=== PATIENT | female | born 1965 | race Caucasian/White ===

== ENCOUNTER 2017-02-21 16:58 | Emergency (ER) | payer SELFPAY ==
[~2017-02-21] VITALS: Ht 162.6 cm; Wt 68.2 kg
[2017-02-21 17:00] VITALS: BP 165/93
[2017-02-21 17:42] LABS: BLOOD UREA NITROGEN 12 mg/dL (7-18)
[2017-02-21 18:16] LABS: IS PT STATUS REG ER OR PRE ER? YES
== END 2017-02-21 19:07 | disposition left against medical advice (07) ==
LOC: ED 19:00
DX: R00.2 Palpitations (principal); F41.1 Generalized anxiety disorder; F22 Delusional disorders; F23 Brief psychotic disorder; F19.10 Other psychoactive substance abuse, uncomplicated
CPT/HCPCS: 36415; 71010; 80048; 82040; 84484; 85025; 93005

== ENCOUNTER 2019-09-27 12:28 | Emergency (ER) | payer MEDICARE ==
[~2019-09-27] VITALS: Ht 162.6 cm; Wt 67.0 kg
[2019-09-27 12:31] VITALS: BP 134/76
[2019-09-27 13:39] LABS: BASOPHILS # (AUTO) 0.11 x10^3/uL (0-0.1); BASOPHILS % (AUTO) 2 % (0-1); EOSINOPHILS # (AUTO) 0.12 x10^3/uL (0-0.4); EOSINOPHILS % (AUTO) 2 % (1-7); LYMPHOCYTES # (AUTO) 1.62 x10^3/uL (1-3.4); LYMPHOCYTES % (AUTO) 25 % (22-44); MD NO; MEAN CORPUSCULAR HEMOGLOBIN 33.2 pg (27.0-34.8); MEAN CORPUSCULAR HGB CONC 34.4 g/dL (32.4-35.8); MEAN CORPUSCULAR VOLUME 96.5 fL (80-100); MEAN PLATELET VOLUME 7.8 fL (7.4-10.4); MONOCYTES # (AUTO) 0.47 x10^3/uL (0.2-0.8); MONOCYTES % (AUTO) 7 % (2-9); NEUTROPHILS # (AUTO) 4.18 x10^3/uL (1.8-6.8); NEUTROPHILS % (AUTO) 64 % (42-75); PLATELET COUNT 330 x10^3/uL (130-400); RED BLOOD COUNT 4.59 x10^6/uL (3.82-5.3)
[2019-09-27 13:45] LABS: CALCIUM 9.6 mg/dL (8.5-10.1); CREATININE 0.77 mg/dL (0.55-1.02)
[2019-09-27 13:54] LABS: ANION GAP 5 mmol/L (5-15); CHLORIDE 104 mmol/L (98-107)
--- NOTE | 2019-09-27 14:48 | NUR ---
pt given dc instructions and script, educated regarding ent f/u. pt a&o, resps even and unlabored, nadn. pt amb to dc desk with steady gait, all questions answered.
== END 2019-09-27 14:49 | disposition home or self-care (01) ==
LOC: ED 13:26
DX: H93.12 Tinnitus, left ear (principal); H92.02 Otalgia, left ear
CPT/HCPCS: 36415; 80048; 82040; 85025; 99283

== ENCOUNTER 2019-10-15 00:09 | Emergency (ER) | payer MEDICARE ==
[~2019-10-15] VITALS: Ht 162.6 cm; Wt 67.1 kg
[2019-10-15 01:48] VITALS: BP 139/74
[2019-10-15 02:13] LABS: BASOPHILS # (AUTO) 0.02 x10^3/uL (0-0.1); BASOPHILS % (AUTO) 0 % (0-1); EOSINOPHILS # (AUTO) 0.25 x10^3/uL (0-0.4); EOSINOPHILS % (AUTO) 3 % (1-7); LYMPHOCYTES # (AUTO) 1.64 x10^3/uL (1-3.4); LYMPHOCYTES % (AUTO) 21 % (22-44); MD NO; MEAN CORPUSCULAR HEMOGLOBIN 32.9 pg (27.0-34.8); MEAN CORPUSCULAR HGB CONC 34.1 g/dL (32.4-35.8); MEAN CORPUSCULAR VOLUME 96.6 fL (80-100); MEAN PLATELET VOLUME 7.8 fL (7.4-10.4); MONOCYTES # (AUTO) 0.73 x10^3/uL (0.2-0.8); MONOCYTES % (AUTO) 9 % (2-9); NEUTROPHILS # (AUTO) 5.37 x10^3/uL (1.8-6.8); NEUTROPHILS % (AUTO) 67 % (42-75); PLATELET COUNT 338 x10^3/uL (130-400); RED BLOOD COUNT 4.35 x10^6/uL (3.82-5.3)
[2019-10-15 02:24] LABS: ALANINE AMINOTRANSFERASE 34 U/L (12-78); ALBUMIN 3.8 g/dL (3.4-5.0); ANION GAP 6 mmol/L (5-15); CALCIUM 9.3 mg/dL (8.5-10.1); CHLORIDE 105 mmol/L (98-107); CREATININE 0.88 mg/dL (0.55-1.02)
[2019-10-15 02:27] LABS: ALKALINE PHOSPHATASE 56 U/L (45-117); BILIRUBIN,TOTAL 0.6 mg/dL (0.2-1.0)
[2019-10-15 02:35] LABS: SALICYLATE LEVEL < 1.7 mg/dL (2.8-20.0)
[2019-10-15 03:14] LABS: AMPHETAMINE SCREEN, URINE Negative (Negative); BARBITURATE SCREEN, URINE Negative (Negative); BENZODIAZEPINE SCREEN, URINE Negative (Negative); CANNABINOID SCREEN, URINE Negative (Negative); COCAINE SCREEN, URINE Negative (Negative); METHADONE SCREEN, URINE Negative (Negative); OPIATE SCREEN, URINE Negative (Negative)
== END 2019-10-15 03:16 | disposition home or self-care (01) ==
LOC: ED 01:22
DX: H93.13 Tinnitus, bilateral (principal); F29 Unspecified psychosis not due to a substance or known physiological condition; F22 Delusional disorders
CPT/HCPCS: 36415; 80053; 80307; 85025; 99283

== ENCOUNTER 2019-11-27 13:58 | Emergency (ER) | payer MEDICARE, MEDICAID ==
[~2019-11-27] VITALS: Ht 162.6 cm; Wt 58.0 kg
[2019-11-27] MEDS ORDERED: ALPR0.5T7 PO (14:20)
--- NOTE | 2019-11-27 14:21 | NUR ---
PT BIBA TO ED FROM [place]. +SI. ON LEGAL HOLD. "I WANT TO BLOW MY BRAINS OUT". EMS BROUGHT LEGAL AT 1421. AXoX4. ANXIOUS. FLIGHT OF IDEAS. "MACHINES DON'T WORK AROUNDME. MY EXES ARE HITTING ME WITH EMPS." TAKEN OFF SEROQUEL (PER PT) D/T ALLERGIC RX 2 WKS AGO AND HASN'T HAD MEDS SINCE, SO WENT TO [place] TODAY. STS HAS HX SUICIDE ATTEMPTS (OD). ASHANTI IN ROOM. LABS/EKG. PT COOPERATIVE. UA SENT.
[2019-11-27 14:26] LABS: BASOPHILS # (AUTO) 0.02 x10^3/uL (0-0.1); BASOPHILS % (AUTO) 0 % (0-1); EOSINOPHILS # (AUTO) 0.09 x10^3/uL (0-0.4); EOSINOPHILS % (AUTO) 1 % (1-7); LYMPHOCYTES # (AUTO) 1.77 x10^3/uL (1-3.4); LYMPHOCYTES % (AUTO) 20 % (22-44); MD NO; MEAN CORPUSCULAR HEMOGLOBIN 32.8 pg (27.0-34.8); MEAN CORPUSCULAR HGB CONC 34.5 g/dL (32.4-35.8); MEAN CORPUSCULAR VOLUME 94.9 fL (80-100); MEAN PLATELET VOLUME 8.4 fL (7.4-10.4); MONOCYTES # (AUTO) 0.75 x10^3/uL (0.2-0.8); MONOCYTES % (AUTO) 8 % (2-9); NEUTROPHILS # (AUTO) 6.21 x10^3/uL (1.8-6.8); NEUTROPHILS % (AUTO) 70 % (42-75); PLATELET COUNT 332 x10^3/uL (130-400); RED BLOOD COUNT 4.51 x10^6/uL (3.82-5.3); RED CELL DISTRIBUTION WIDTH 12.5 % (9.6-15.2)
--- NOTE | 2019-11-27 14:27 | NUR ---
TASK RN: THIS RN PRESENT DURING EKG PROCEDURE. PT TOLERATED WITH NO COMPLICATIONS.
[2019-11-27] MEDS ORDERED: LORazepam 1MG TABLET ONE (14:29)
[2019-11-27] MEDS ORDERED: LORazepam 1MG TABLET PO ONE (14:30)
--- NOTE | 2019-11-27 14:33 | NUR ---
BELONGINGS (2 BAGS) IN PSYCH LOCKER. SITTER IN PLACE FOR SAFETY. LEGAL HOLD PAPERS GIVEN TO DR BURRELL. REPORT TO CELESTINO JOSEPH.
[2019-11-27 14:35] LABS: ALBUMIN 4.2 g/dL (3.4-5.0); ANION GAP 6 mmol/L (5-15); CALCIUM 9.4 mg/dL (8.5-10.1); CHLORIDE 105 mmol/L (98-107); CREATININE 0.75 mg/dL (0.55-1.02)
[2019-11-27 14:36] LABS: SALICYLATE LEVEL < 1.7 mg/dL (2.8-20.0)
[2019-11-27 15:20] LABS: AMPHETAMINE SCREEN, URINE Negative (Negative); BARBITURATE SCREEN, URINE Negative (Negative); BENZODIAZEPINE SCREEN, URINE Negative (Negative); CANNABINOID SCREEN, URINE Negative (Negative); COCAINE SCREEN, URINE Negative (Negative); METHADONE SCREEN, URINE Negative (Negative); OPIATE SCREEN, URINE Negative (Negative)
--- NOTE | 2019-11-27 15:59 | NUR ---
ALDO BARREL RAISER HELPER AT BEDSIDEFOR EVALUATION
[2019-11-27] MEDS ORDERED: QUETIAPINE 25MG TABLET PO PRN (16:00)
[2019-11-27] MEDS ORDERED: QUET300T5 PO (16:00)
[2019-11-27] MEDS ORDERED: QUETIAPINE 25MG TABLET ONE (16:11)
--- NOTE | 2019-11-27 16:54 | NUR ---
MEAL PROVIDED. SAFETY PRECAUTIONS IN PLACE.
--- NOTE | 2019-11-27 18:15 | NUR ---
REPORT TO ELI DHILLON RN
--- NOTE | 2019-11-27 18:39 | NUR ---
PT RESTING IN BED, SAFETY PRECAUTIONS IN PLACE. SNACK PROVIDED.
--- NOTE | 2019-11-27 18:44 | NUR ---
REPORT GIVEN TO JESSIE JOSEPH
--- NOTE | 2019-11-27 18:49 | NUR ---
REPORT RECEIVED FROM OPAL TIRADO. REPORT ALREADY CALLED TO 3E, AWAITING BED. PT RESTING ON GURNEY, UPDATED ON POC. SITTER IN HALLWAY, ROOM SECURED.
[2019-11-27] MEDS ORDERED: QUETIAPINE 100MG TABLET PO SCH ×2 (21:00→22:00)
[2019-11-27 21:02] VITALS: BP 152/88
[2019-11-27] MEDS ORDERED: ZOLPIDEM 5MG TABLET PO PRN (22:00)
[2019-11-28] MEDS ORDERED: LAMO200T3 PO (01:22)
[2019-11-28] MEDS ORDERED: LAMOTRIGINE 100 MG TABLET PO SCH (09:00)
== END 2019-11-27 21:01 | disposition home or self-care (01) ==
LOC: ED 14:32 → EDIP 19:34 → 3E 19:34 → UNDOADMIN 19:34 → ED 21:01
DX: F22 Delusional disorders (principal); R45.851 Suicidal ideations; F41.1 Generalized anxiety disorder; Z91.14 Patient's other noncompliance with medication regimen; I51.7 Cardiomegaly
CPT/HCPCS: 36415; 80048; 80307; 82040; 85025; 93005; 99284

== ENCOUNTER 2019-11-27 18:49 | Inpatient (IN) | payer MEDICARE, MEDICAID ==
[~2019-11-27] VITALS: Ht 162.6 cm; Wt 70.9 kg
[~2019-11-27 18:49] MED LIST: ALPR0.5T7 PO; QUET300T5 PO
[2019-11-27] MEDS ORDERED: BISACODYL 10 MG SUPP PR PRN (20:00)
[2019-11-27] MEDS ORDERED: DOCUSATE 100 MG CAPSULE PO PRN (20:00)
[2019-11-27] MEDS ORDERED: ONDANSETRON ODT 4 MG PO PRN (20:00)
[2019-11-27] MEDS ORDERED: POLYETHYLENE GLYCOL 17 GM PACKET PO PRN (20:00)
[2019-11-27 20:22] LABS: ALANINE AMINOTRANSFERASE 38 U/L (12-78); ALBUMIN 4.1 g/dL (3.4-5.0); BILIRUBIN, DIRECT 0.1 mg/dL (0.1-0.2); CHOLESTEROL, TOTAL 200 mg/dL (140-239)
[2019-11-27 20:27] LABS: ALKALINE PHOSPHATASE 67 U/L (45-117); BILIRUBIN,INDIRECT 0.3 mg/dL (0.0-2.0); BILIRUBIN,TOTAL 0.4 mg/dL (0.2-1.0); CHOL/HDL RATIO 3.6; FREE T4 (FREE THYROXINE) 1.33 ng/dL (0.76-1.46); HDL CHOL % 28 % (28-40); HDL CHOLESTEROL (DIRECT) 55 mg/dL (40-60); TOTAL PROTEIN 8.1 g/dL (6.4-8.2); TRIGLYCERIDES 500 mg/dL (50-200)
[2019-11-27 20:29] LABS: CULTURE INDICATED? YES; MICROSCOPIC INDICATED
[2019-11-27 21:05] VITALS: BP 152/88
[2019-11-27 22:00] VITALS: BP 152/88
[2019-11-27] MEDS ORDERED: QUETIAPINE 100MG TABLET PO SCH (22:30)
[2019-11-27] MEDS ORDERED: PLEASE ENTER HEIGHT AND WEIGHT MC SCH (22:30)
[2019-11-27] MEDS: ZOLPIDEM 5MG TABLET PO PRN (22:34)
[2019-11-28] MEDS ORDERED: LAMO200T3 PO (01:22)
[2019-11-28 07:38] VITALS: BP 123/87
[2019-11-28] MEDS: MELOXICAM 15 MG TABLET PO SCH (08:32)
[2019-11-28] MEDS: LAMOTRIGINE 25 MG TABLET PO SCH (08:33)
[2019-11-28] MEDS: LORazepam 1MG TABLET PO PRN (14:13)
[2019-11-28 19:10] VITALS: BP 123/80
[2019-11-28] MEDS: ZOLPIDEM 5MG TABLET PO PRN (19:53)
[2019-11-28] MEDS: QUETIAPINE 100MG TABLET PO SCH (19:53)
[2019-11-28] MEDS ORDERED: ZOLPIDEM 5MG TABLET PO SCH (21:00)
[2019-11-28] MEDS ORDERED: QUETIAPINE 100MG TABLET PO SCH (21:00)
[2019-11-29 06:12] LABS: CHOL/HDL RATIO 3.3; LDL/HDL RATIO 0.8 (0.5-3.0)
[2019-11-29 07:47] VITALS: BP 137/87
[2019-11-29] MEDS: QUETIAPINE 100MG TABLET PO SCH ×2 (09:33→20:21)
[2019-11-29] MEDS: LAMOTRIGINE 25 MG TABLET PO SCH (09:33)
[2019-11-29] MEDS: MELOXICAM 15 MG TABLET PO SCH (09:33)
[2019-11-29] MEDS: LORazepam 1MG TABLET PO PRN (11:29)
[2019-11-29 17:01] LABS: HCT (SEDRATE) 38.2 % (34.6-47.8)
[2019-11-29 17:04] LABS: BASOPHILS # (AUTO) 0.03 x10^3/uL (0-0.1); BASOPHILS % (AUTO) 1 % (0-1); EOSINOPHILS # (AUTO) 0.15 x10^3/uL (0-0.4); EOSINOPHILS % (AUTO) 2 % (1-7); LYMPHOCYTES # (AUTO) 1.69 x10^3/uL (1-3.4); LYMPHOCYTES % (AUTO) 27 % (22-44); MD NO; MEAN CORPUSCULAR HEMOGLOBIN 32.3 pg (27.0-34.8); MEAN CORPUSCULAR VOLUME 94.9 fL (80-100); MEAN PLATELET VOLUME 8.5 fL (7.4-10.4); MONOCYTES # (AUTO) 0.61 x10^3/uL (0.2-0.8); MONOCYTES % (AUTO) 10 % (2-9); NEUTROPHILS # (AUTO) 3.85 x10^3/uL (1.8-6.8); NEUTROPHILS % (AUTO) 61 % (42-75); PLATELET COUNT 262 x10^3/uL (130-400); RED BLOOD COUNT 4.02 x10^6/uL (3.82-5.3)
[2019-11-29 17:10] LABS: ANION GAP 7 mmol/L (5-15); C-REACTIVE PROTEIN, QUANT 0.11 mg/dL (0.02-0.49); CALCIUM 9.1 mg/dL (8.5-10.1); CHLORIDE 105 mmol/L (98-107); CREATININE 0.69 mg/dL (0.55-1.02)
[2019-11-29 19:15] VITALS: BP 122/77
[2019-11-29] MEDS: ZOLPIDEM 5MG TABLET PO PRN (20:21)
[2019-11-29] MEDS: SULFAMETH./TRIMETHOPRIM DS 800MG/160MG TABLET PO SCH (20:22)
[2019-11-30 07:28] VITALS: BP 126/86
[2019-11-30] MEDS: MELOXICAM 15 MG TABLET PO SCH (08:49)
[2019-11-30] MEDS: LAMOTRIGINE 25 MG TABLET PO SCH (08:49)
[2019-11-30] MEDS: QUETIAPINE 100MG TABLET PO SCH ×2 (08:50→20:05)
[2019-11-30] MEDS: SULFAMETH./TRIMETHOPRIM DS 800MG/160MG TABLET PO SCH ×2 (08:50→20:05)
[2019-11-30] MEDS: LORazepam 1MG TABLET PO PRN ×2 (08:51→17:55)
[2019-11-30] MEDS: FENOFIBRATE 145 MG TABLET PO SCH (08:52)
[2019-11-30] MEDS: ZOLPIDEM 5MG TABLET PO PRN (20:05)
[2019-11-30 20:08] VITALS: BP 107/70
[2019-12-01 07:28] VITALS: BP 125/77
[2019-12-01] MEDS: MELOXICAM 15 MG TABLET PO SCH (08:55)
[2019-12-01] MEDS: FENOFIBRATE 145 MG TABLET PO SCH (08:55)
[2019-12-01] MEDS: LAMOTRIGINE 25 MG TABLET PO SCH (08:55)
[2019-12-01] MEDS: QUETIAPINE 100MG TABLET PO SCH ×2 (08:55→20:31)
[2019-12-01] MEDS: LORazepam 1MG TABLET PO PRN ×2 (08:55→20:31)
[2019-12-01] MEDS: SULFAMETH./TRIMETHOPRIM DS 800MG/160MG TABLET PO SCH ×2 (08:55→20:31)
[2019-12-01 20:11] VITALS: BP 118/81
[2019-12-01] MEDS: ZOLPIDEM 5MG TABLET PO PRN (20:31)
[2019-12-02 07:46] VITALS: BP 115/75
[2019-12-02] MEDS: LAMOTRIGINE 25 MG TABLET PO SCH (09:01)
[2019-12-02] MEDS: SULFAMETH./TRIMETHOPRIM DS 800MG/160MG TABLET PO SCH ×2 (09:01→20:31)
[2019-12-02] MEDS: FENOFIBRATE 145 MG TABLET PO SCH (09:01)
[2019-12-02] MEDS: QUETIAPINE 100MG TABLET PO SCH ×2 (09:02→20:31)
[2019-12-02] MEDS: MELOXICAM 15 MG TABLET PO SCH (09:03)
[2019-12-02] MEDS: LORazepam 1MG TABLET PO PRN ×3 (09:10→20:31)
[2019-12-02 19:43] VITALS: BP 119/76
[2019-12-02] MEDS: ZOLPIDEM 5MG TABLET PO PRN (20:31)
[2019-12-03 07:26] VITALS: BP 122/80
[2019-12-03] MEDS: SULFAMETH./TRIMETHOPRIM DS 800MG/160MG TABLET PO SCH ×2 (08:25→21:07)
[2019-12-03] MEDS: LAMOTRIGINE 25 MG TABLET PO SCH (08:25)
[2019-12-03] MEDS: FENOFIBRATE 145 MG TABLET PO SCH (08:25)
[2019-12-03] MEDS: QUETIAPINE 100MG TABLET PO SCH ×2 (08:25→21:06)
[2019-12-03] MEDS: MELOXICAM 15 MG TABLET PO SCH (08:25)
[2019-12-03] MEDS: LORazepam 1MG TABLET PO PRN ×3 (08:31→21:07)
[2019-12-03] MEDS ORDERED: IBUPROFEN 600 MG TABLET ONE (13:18)
[2019-12-03] MEDS ORDERED: LIDODERM 5% PATCH TD ONE (13:18)
[2019-12-03] MEDS: IBUPROFEN 200 MG TABLET PO PRN ×2 (13:34→21:07)
[2019-12-03] MEDS: LIDODERM 5% PATCH TD PRN (13:34)
[2019-12-03 19:48] VITALS: BP 124/78
[2019-12-03] MEDS: ZOLPIDEM 5MG TABLET PO PRN (21:07)
[2019-12-04 07:54] VITALS: BP 121/79
[2019-12-04] MEDS: LAMOTRIGINE 25 MG TABLET PO SCH (09:26)
[2019-12-04] MEDS: MELOXICAM 15 MG TABLET PO SCH (09:26)
[2019-12-04] MEDS: FENOFIBRATE 145 MG TABLET PO SCH (09:26)
[2019-12-04] MEDS: LORazepam 1MG TABLET PO PRN ×2 (09:26→14:43)
[2019-12-04] MEDS: SULFAMETH./TRIMETHOPRIM DS 800MG/160MG TABLET PO SCH (09:27)
[2019-12-04] MEDS: QUETIAPINE 100MG TABLET PO SCH ×2 (09:27→20:41)
[2019-12-04 19:30] VITALS: BP 120/80
[2019-12-04] MEDS: ZOLPIDEM 5MG TABLET PO PRN (20:41)
[2019-12-05 07:33] VITALS: BP 122/79
[2019-12-05] MEDS: MELOXICAM 15 MG TABLET PO SCH (09:19)
[2019-12-05] MEDS: QUETIAPINE 100MG TABLET PO SCH ×2 (09:19→20:17)
[2019-12-05] MEDS: LAMOTRIGINE 25 MG TABLET PO SCH (09:19)
[2019-12-05] MEDS: FENOFIBRATE 145 MG TABLET PO SCH (09:20)
[2019-12-05] MEDS: LORazepam 1MG TABLET PO PRN ×3 (09:27→20:21)
[2019-12-05] MEDS: CALCIUM CARBONATE 500 MG TAB.CHEW PO SCH ×2 (16:04→20:17)
[2019-12-05 16:47] LABS: MICROSCOPIC NOT IND
[2019-12-05 16:51] LABS: CULTURE INDICATED? NO
[2019-12-05 19:43] VITALS: BP 115/77
[2019-12-05] MEDS: ZOLPIDEM 5MG TABLET PO PRN (20:17)
[2019-12-06] MEDS: CALCIUM CARBONATE 500 MG TAB.CHEW PO SCH ×4 (06:10→20:05)
[2019-12-06 08:00] VITALS: BP 140/84
[2019-12-06] MEDS: QUETIAPINE 100MG TABLET PO SCH ×2 (08:08→20:05)
[2019-12-06] MEDS: FENOFIBRATE 145 MG TABLET PO SCH (08:09)
[2019-12-06] MEDS: MELOXICAM 15 MG TABLET PO SCH (08:09)
[2019-12-06] MEDS: LAMOTRIGINE 25 MG TABLET PO SCH (08:09)
[2019-12-06] MEDS: LORazepam 1MG TABLET PO PRN ×3 (08:14→20:05)
[2019-12-06] MEDS: LIDODERM 5% PATCH TD PRN (08:16)
[2019-12-06 19:34] VITALS: BP 122/79
[2019-12-06] MEDS: ZOLPIDEM 5MG TABLET PO PRN (20:05)
[2019-12-07] MEDS: CALCIUM CARBONATE 500 MG TAB.CHEW PO SCH ×2 (06:09→12:29)
[2019-12-07 07:13] VITALS: BP 120/79
[2019-12-07] MEDS: FENOFIBRATE 145 MG TABLET PO SCH (08:36)
[2019-12-07] MEDS: MELOXICAM 15 MG TABLET PO SCH (08:36)
[2019-12-07] MEDS: LORazepam 1MG TABLET PO PRN (08:36)
[2019-12-07] MEDS: QUETIAPINE 100MG TABLET PO SCH (08:37)
[2019-12-07] MEDS: LIDODERM 5% PATCH TD PRN (08:37)
[2019-12-07] MEDS: LAMOTRIGINE 25 MG TABLET PO SCH (08:37)
[2019-12-07] MEDS ORDERED: LAMO25TA9 PO (13:32)
[2019-12-07] MEDS ORDERED: LORA-446 PO (13:32)
[2019-12-07] MEDS ORDERED: QUET100T PO (13:32)
[2019-12-07] MEDS ORDERED: MELO15TA24 PO (13:32)
[2019-12-07] MEDS ORDERED: FENO145T19 PO (13:32)
== END 2019-12-07 16:05 | disposition home or self-care (01) | DRG 885 ==
LOC: 3E 22:02
PROVIDERS: ADMIT Psychiatry & Neurology Psychosomatic Medicine; ATTEND Psychiatry & Neurology Psychosomatic Medicine
DX: F31.5 Bipolar disorder, current episode depressed, severe, with psychotic features (principal); F41.9 Anxiety disorder, unspecified; B95.62 Methicillin resistant Staphylococcus aureus infection as the cause of diseases classified elsewhere; E78.1 Pure hyperglyceridemia; F41.1 Generalized anxiety disorder; M54.9 Dorsalgia, unspecified; G47.00 Insomnia, unspecified; G89.29 Other chronic pain; Z79.899 Other long term (current) drug therapy; Z91.14 Patient's other noncompliance with medication regimen; Z90.49 Acquired absence of other specified parts of digestive tract; Z88.8 Allergy status to other drugs, medicaments and biological substances; Z88.5 Allergy status to narcotic agent; Z82.49 Family history of ischemic heart disease and other diseases of the circulatory system
CPT/HCPCS: 36415; 71045; 80048; 80061; 80076; 81001; 81003; 82607; 84439; 84443; 84703; 85025; 85651; 86140; 87040; 87077; 87086; 87186

== ENCOUNTER 2019-12-14 15:54 | Emergency (ER) | payer MEDICAID, MEDICARE ==
[~2019-12-14] VITALS: Ht 162.6 cm; Wt 61.2 kg
[~2019-12-14 15:54] MED LIST changes: +FENO145T19 PO; +LAMO200T3 PO; +LAMO25TA9 PO; +LORA-446 PO; +MELO15TA24 PO; +QUET100T PO
--- NOTE | 2019-12-14 16:05 | NUR ---
PT BIB [facility] FROM HOME FOR C/O ABD PAIN, N/V/D STARTED LAST NOC. PT REPORTS WAS RECENTLY IN HOSPITAL, "STOPPED BREATHING" AFTER TAKING SEROQUEL. PT HAS BEEN SCARED TO TAKE PRESCRIPTION MEDICATIONS ORDERED BY PCP. PT REPORTS HAS NOT SLEPT IN THREE DAYS. PT TALKING CONTINUOUSLY, C/O BLAKE AT THIS TIME. PT WAS GIVEN 250ML NS VIA [facility] [employer]LE[employer] INTER[employer]. PT PLACED ON MONITOR.
[2019-12-14] MEDS ORDERED: SODIUM CHLORIDE 0.9% 1,000ML IVBOLUS ONE (16:30)
[2019-12-14] MEDS ORDERED: SODIUM CHLORIDE FLUSH 10ML SYR IVF ONE (16:30)
--- NOTE | 2019-12-14 16:51 | NUR ---
IVF INFUSING ORDERED.
[2019-12-14 17:07] LABS: ALANINE AMINOTRANSFERASE 18 U/L (12-78); ALBUMIN 3.7 g/dL (3.4-5.0); ANION GAP 9 mmol/L (5-15); CALCIUM 13.2 mg/dL (8.5-10.1); CHLORIDE 102 mmol/L (98-107); CREATININE 1.25 mg/dL (0.55-1.02)
[2019-12-14 17:10] LABS: ALKALINE PHOSPHATASE 47 U/L (45-117); BILIRUBIN,TOTAL 0.4 mg/dL (0.2-1.0); TOTAL PROTEIN 7.7 g/dL (6.4-8.2)
[2019-12-14 17:13] LABS: BASOPHILS # (AUTO) 0.06 x10^3/uL (0-0.1); BASOPHILS % (AUTO) 1 % (0-1); EOSINOPHILS # (AUTO) 0.02 x10^3/uL (0-0.4); EOSINOPHILS % (AUTO) 0 % (1-7); LYMPHOCYTES % (AUTO) 10 % (22-44); MD NO; MEAN CORPUSCULAR HEMOGLOBIN 32.4 pg (27.0-34.8); MEAN CORPUSCULAR HGB CONC 33.8 g/dL (32.4-35.8); MEAN CORPUSCULAR VOLUME 95.8 fL (80-100); MEAN PLATELET VOLUME 8.1 fL (7.4-10.4); MONOCYTES # (AUTO) 0.82 x10^3/uL (0.2-0.8); MONOCYTES % (AUTO) 8 % (2-9); NEUTROPHILS # (AUTO) 8.59 x10^3/uL (1.8-6.8); NEUTROPHILS % (AUTO) 82 % (42-75); PLATELET COUNT 314 x10^3/uL (130-400); RED BLOOD COUNT 4.36 x10^6/uL (3.82-5.3); RED CELL DISTRIBUTION WIDTH 13.3 % (9.6-15.2)
--- NOTE | 2019-12-14 17:27 | NUR ---
PROVIDED W/ WARM BLANKETS. IVF INFUSING ORDERED. PT AWARE NEED UA WHEN ABLE TO VOID
--- NOTE | 2019-12-14 17:54 | NUR ---
PT LISTING MULT COMPLAINTS INCLUDING NECK PAIN, BLAKE, LEFT SHOULDER PAIN, WEAKNESS AND "JUST DON'T FEEL ANY BETTER. PT AMBULATED TO BR WITHOUT DIFFICULTY, INSTRUCTED ON CLEAN CATCH TECHNIQUE. URINE COLLECTED AND SENT TO LAB.
[2019-12-14 18:17] LABS: MICROSCOPIC AUTO
[2019-12-14 18:27] LABS: CULTURE INDICATED? YES
[2019-12-14] MEDS ORDERED: ONDANSETRON 2MG/ML, 2ML IVPush ONE (19:00)
[2019-12-14] MEDS ORDERED: KETOROLAC 30 MG/1 ML IVPush ONE (19:00)
--- NOTE | 2019-12-14 19:15 | NUR ---
REPORT TO OPAL VERAS
[2019-12-14] MEDS ORDERED: ONDANSETRON 2MG/ML, 2ML ONE (19:26)
[2019-12-14] MEDS ORDERED: KETOROLAC 30 MG/1 ML ONE (19:26)
[2019-12-14 19:30] VITALS: BP 143/84
== END 2019-12-14 20:50 | disposition home or self-care (01) ==
LOC: ED 20:07
DX: K52.9 Noninfective gastroenteritis and colitis, unspecified (principal); E83.52 Hypercalcemia; R11.2 Nausea with vomiting, unspecified; I51.7 Cardiomegaly; R06.00 Dyspnea, unspecified; F29 Unspecified psychosis not due to a substance or known physiological condition
CPT/HCPCS: 36415; 71045; 80053; 81001; 83690; 85025; 87086; 93005; 96361; 96374; 96375; 99285; J1885; J2405; J7030

== ENCOUNTER 2019-12-16 09:54 | Emergency (ER) | payer MEDICARE ==
[~2019-12-16] VITALS: Ht 162.6 cm; Wt 60.0 kg
--- NOTE | 2019-12-16 10:14 | NUR ---
ON INITIAL ATTEMPT TO ASSESS PATIENT SHE WAS SCREAMING PROFANITIES AND THROWING A GOWN AND HER EMPTY BARF BAG AT ME. LEFT ROOM ALERTED CHARGE NURSE. REATTEMPTING X2 TO ASSESS PATIENT. SHE IS STATING ABDOMINAL PAIN ALL OVER FOR TWO DAYS, N/V. SHE ALSO REPORTS COUGHING. SHE WAS HERE TWO DAYS AGO FOR SIMALAR SYMPTOMS
--- NOTE | 2019-12-16 10:21 | NUR ---
PATIENT THINKS SHE HAS MICROCHIPS IN HER EYES AND EARS
[2019-12-16 10:48] LABS: BASOPHILS # (AUTO) 0.03 x10^3/uL (0-0.1); BASOPHILS % (AUTO) 0 % (0-1); EOSINOPHILS # (AUTO) 0.04 x10^3/uL (0-0.4); EOSINOPHILS % (AUTO) 0 % (1-7); LYMPHOCYTES # (AUTO) 1.05 x10^3/uL (1-3.4); LYMPHOCYTES % (AUTO) 10 % (22-44); MD NO; MEAN CORPUSCULAR HEMOGLOBIN 32.3 pg (27.0-34.8); MEAN CORPUSCULAR HGB CONC 33.7 g/dL (32.4-35.8); MEAN CORPUSCULAR VOLUME 95.7 fL (80-100); MEAN PLATELET VOLUME 8.7 fL (7.4-10.4); MONOCYTES # (AUTO) 0.62 x10^3/uL (0.2-0.8); MONOCYTES % (AUTO) 6 % (2-9); NEUTROPHILS # (AUTO) 9.04 x10^3/uL (1.8-6.8); NEUTROPHILS % (AUTO) 84 % (42-75); PLATELET COUNT 265 x10^3/uL (130-400); RED BLOOD COUNT 3.97 x10^6/uL (3.82-5.3); RED CELL DISTRIBUTION WIDTH 12.8 % (9.6-15.2)
[2019-12-16 10:53] LABS: ALANINE AMINOTRANSFERASE 19 U/L (12-78); ALBUMIN 3.5 g/dL (3.4-5.0); ANION GAP 6 mmol/L (5-15); CALCIUM 13.3 mg/dL (8.5-10.1); CHLORIDE 105 mmol/L (98-107); CREATININE 2.29 mg/dL (0.55-1.02)
[2019-12-16 10:57] LABS: ALKALINE PHOSPHATASE 53 U/L (45-117); BILIRUBIN,TOTAL 0.5 mg/dL (0.2-1.0); TOTAL PROTEIN 7.4 g/dL (6.4-8.2)
[2019-12-16 10:57] LABS: MICROSCOPIC AUTO
[2019-12-16 10:58] LABS: SALICYLATE LEVEL < 1.7 mg/dL (2.8-20.0)
[2019-12-16 11:01] LABS: CULTURE INDICATED? YES
[2019-12-16 11:34] VITALS: BP 132/78
--- NOTE | 2019-12-16 11:48 | NUR ---
reviewed discharge for patient to take abx and zofran but patient angry yelling shes going to leave and call ems to go to [facility]. anabela
== END 2019-12-16 11:49 | disposition home or self-care (01) ==
LOC: ED 10:38
DX: N30.00 Acute cystitis without hematuria (principal); N28.9 Disorder of kidney and ureter, unspecified
CPT/HCPCS: 36415; 71045; 80053; 80307; 81001; 83690; 85025; 87086; 99284